=== PATIENT | female | born 1980 | race Asian ===

== ENCOUNTER 2017-10-10 09:22 | Outpatient (CLI) | payer OTHER | END 2017-10-10 09:23 | disposition home or self-care (01) | LOC: DTY/OP 09:22 | PROVIDERS: ATTEND Obstetrics & Gynecology | DX: O24.419 Gestational diabetes mellitus in pregnancy, unspecified control (principal); Z71.3 Dietary counseling and surveillance | CPT/HCPCS: 97802 ==